=== PATIENT | female | born 1930 | race Two or more races ===

== ENCOUNTER 2016-10-07 09:52 | Day surgery (SDC) | payer OTHER ==
[~2016-10-07] VITALS: Ht 157.5 cm; Wt 56.9 kg
[2016-10-07] VITALS (13 sets, daily range): BP systolic 83–178; BP diastolic 49–82; PULSE 64–97; RESP 16–18; Ht 157.5 cm; Wt 56.9 kg
[2016-10-07 10:48] LABS: BASOPHIL # 0.1 10^3/ul (0.0-0.1); BASOPHILS % 0.8 % (0.0-2.0); EOSINOPHILS # 0.4 10^3/ul (0.0-0.5); EOSINOPHILS % 3.8 % (0.0-7.0); HEMOGLOBIN 14.2 g/dl (12.0-16.0); LYMPHOCYTES # 3.7 10^3/ul (0.8-2.9); LYMPHOCYTES % 32.9 % (15.0-51.0); MEAN CORPUSCULAR HEMOGLOBIN 25.9 pg (29.0-33.0); MEAN CORPUSCULAR VOLUME 78.3 fl (82.0-101.0); MEAN PLATELET VOLUME 9.5 fl (7.4-10.4); MONOCYTE # 1.1 10^3/ul (0.3-0.9); NEUTROPHIL # 5.9 10^3/ul (1.6-7.5); NEUTROPHILS % 51.6 % (39.0-77.0); PLATELET COUNT 443 10^3/UL (140-415); RED BLOOD COUNT 5.49 10^6/ul (4.20-5.40); RED CELL DISTRIBUTION WIDTH 15.4 % (11.5-14.5); WHITE BLOOD COUNT 11.4 10^3/ul (4.8-10.8)
[2016-10-07] MEDS ORDERED: CIPROFLOXACIN 400 MG in D5W 200 ML IVPB SCH (11:00)
[2016-10-07 11:10] LABS: CALCIUM 9.5 mg/dl (8.4-10.2); CREATININE 0.77 mg/dl (0.44-1.00); POTASSIUM 5.7 mmol/L (3.5-5.1)
[2016-10-07] MEDS ORDERED: PHENYLephrine (100 MCG/ML) 5ML SYG ONE (11:29)
[2016-10-07] MEDS ORDERED: ONDANSETRON 4 MG INJ IV PRN (12:00)
[2016-10-07] MEDS ORDERED: FENTAnyl 50 MCG/ML VIAL IV PRN (12:00)
[2016-10-07] MEDS ORDERED: PROPOFOL 20 ML ONE (12:08)
[2016-10-07] MEDS ORDERED: ROCURONIUM 50 MG INJ ONE (12:08)
[2016-10-07] MEDS ORDERED: LIDOCAINE 2% (SDV) 5 ML INJ ONE (12:08)
[2016-10-07] MEDS ORDERED: GLYCOPYRROLATE 0.4 MG INJ ONE (12:08)
[2016-10-07] MEDS ORDERED: NEOSTIGMINE 3 MG/3 ML SYRINGE ONE (12:08)
[2016-10-07] MEDS ORDERED: SUCCINYLCHOLINE CHLORIDE 100 MG/5 ML SYG IV ONE (12:08)
--- NOTE | 2016-10-07 12:09 | HPN ---
Date/Time of Note Date/Time of Note DATE: 10/07/16 TIME: 12:09 Interval H&P Admission Note Pt. seen H&P reviewed: No system changes CRISTIANE KELLEY MD Oct 07, 2016 12:09
--- NOTE | 2016-10-07 12:12 | OPPN ---
Date/Time of Note Date/Time of Note DATE: 10/07/16 TIME: 12:10 Operative Report Preoperative Diagnosis Bile duct stone Nausea vomiting and abdominal pain Postoperative Diagnosis Bile duct stone multiple removed Operation/Procedure Performed 1. Sphincterotomy 2. Removal of the stent 3. Removal of 10-15 stones both pigmented and nonpigmented 4. Excellent drainage 5. Fluoroscopy time 5 seconds. Provider: CRISTIANE KELLEY MD Estimated blood loss: none Transfusion Required: no Specimen: none Grafts/Implants: none Complications: no CRISTIANE KELLEY MD Oct 07, 2016 12:12
--- NOTE | 2016-10-07 13:26 | GILP ---
DATE OF PROCEDURE: 10/07/2016 SURGEON: Dr. Rosario. PROCEDURES PERFORMED: ERCP, removal of stents, sphincterotomy and removal of 10-15 stones. INDICATIONS FOR PROCEDURE: An 86-year-old female undergoing this procedure for persistent abdominal pain, nausea, vomiting, and . The purpose is evaluate the upper GI tract to find out the cause of her symptoms and also do a ERCP and performed therapeutic biliary procedure. The risks of the procedure, related complications, anesthetic risk, and alternatives thoroughly discussed with the patient and the daughter and informed consent was obtained. Cardiology clearance was obtained prior to procedure. DESCRIPTION OF PROCEDURE: The patient was brought to the OR room number 1 intubated and placed in prone position. Was given Cipro prior to the procedure. The upper endoscope passed into the esophagus and was grossly within normal limits. Stomach mucosa revealed chronic gastritis and further down into duodenal stent was identified. With the help of a snare and scope, all stents were removed together. Then ERCP scope passed into the esophagus, advanced further down into stomach and duodenum. Ampulla was selectively cannulated with 9-12 balloon. Cholangiogram was obtained and multiple stones were identified. Ten stones were removed, both pigmented and non-pigmented. The last 2 stones were not coming out because of the small sphincterotomy and probably narrowing of the intrapapillary portion of the bile duct. So at this point, since we did not have the metallic stent on the chart or in the GI lab decided to extend the sphincterotomy. Sphincterotomy was extended by another almost 1 cm and after extending the sphincterotomy 9-12 mm balloon was used and the rest of the stone came out. The drainage was excellent, still though there was a 2 to 3 mm room to do a sphincterotomy, but since the bile duct appeared clear on the cholangiogram and drainage was excellent, decided to terminate the procedure, besides no metallic stent was available in the GI lab. Total fluoro time was 5 seconds. IMPRESSION: 1. Removal of the stent. 2. Removal of the multiple bile duct stones. 3. Extended sphincterotomy. 4. Excellent drainage established. 5. Fluoroscopy time was 5 seconds. 6. EGD showed chronic gastritis. PLAN: 1. Place the patient on PPI. 2. Monitor LFTs and the symptoms as an outpatient. Dictated By: Paddy Rosario MD /alli/isabela /Document#: [id number] ; Primary Care Physician
--- NOTE | 2016-10-07 16:10 | RADRPT ---
PROCEDURE: Intraoperative imaging for ERCP with fluoroscopy. CLINICAL INDICATION: Right upper quadrant pain. Intraoperative. TECHNIQUE: 6 images of the right upper quadrant of the abdomen were obtained in the operating room with an image intensifier. No radiologist was in attendance. 5.8 seconds of fluoroscopy time was used. COMPARISON: No prior study is available for comparison. FINDINGS: Images demonstrate the endoscope in position. Contrast was injected into the common bile duct. Mul tiple filling defects are present in the common bile duct consistent with stones or air bubbles. IMPRESSION: 1. ERCP as described above. RPTAT: QQ .Robbie Mcdowell MD, Date Time Electronically viewed and signed by .Robbie Mcdowell MD, on 10/07/2016 16:10 .R/
--- NOTE | 2016-10-09 11:20 | RADRPT ---
Vent Rate: 94 bpm RR Interval: 0 msec SD Interval: 224 msec QRS Duration: 84 msec QT Interval: 358 msec QTC Interval: 447 msec P-R-T [place]: 42 - 11 - 45 degrees Sinus rhythm with 1st degree AV block Otherwise normal ECG Electronically Signed By: Prince España [id number]
== END 2016-10-07 13:55 | disposition home or self-care (01) ==
LOC: SDS 09:52
PROVIDERS: ATTEND Internal Medicine Gastroenterology
DX: K80.50 Calculus of bile duct without cholangitis or cholecystitis without obstruction (principal)
CPT/HCPCS: 43264; 43275; 74330; 80048; 85025; 93005; J2710; Z7512; Z7610; J2370; J7999